=== PATIENT | male | born 2000 | race Caucasian/White ===

== ENCOUNTER 2022-09-19 08:33 | Emergency (ER) | payer OTHER ==
[~2022-09-19] VITALS: Ht 190.5 cm; Wt 88.8 kg
[2022-09-19 08:53] VITALS: BP 116/77
== END 2022-09-19 10:01 | disposition home or self-care (01) ==
LOC: ER 08:33
DX: J33.9 Nasal polyp, unspecified (principal)
CPT/HCPCS: 99281

== ENCOUNTER 2023-01-20 12:27 | Emergency (ER) | payer OTHER ==
[~2023-01-20] VITALS: Ht 190.5 cm; Wt 83.2 kg
[2023-01-20 13:12] VITALS: BP 133/89; PULSE 76; RESP 18; TEMP 100.2; O2SAT 98
[2023-01-20] MEDS ORDERED: PENI-88 PO (13:46)
[2023-01-20] MEDS ORDERED: LIDO20SO16 PO (13:46)
[2023-01-21] MEDS ORDERED: BENZ1LOZ74 PO (14:55)
[2023-01-21] MEDS ORDERED: IBUP-1986 PO (14:55)
== END 2023-01-20 13:59 | disposition home or self-care (01) ==
LOC: ER 12:28
DX: J02.0 Streptococcal pharyngitis (principal); Z79.2 Long term (current) use of antibiotics; Z79.899 Other long term (current) drug therapy
CPT/HCPCS: 99283

== ENCOUNTER 2023-01-21 13:57 | Emergency (ER) | payer OTHER ==
[~2023-01-21] VITALS: Ht 190.5 cm; Wt 74.4 kg
[~2023-01-21 13:57] MED LIST: LIDO20SO16 PO; PENI-88 PO
[2023-01-21 13:58] VITALS: BP 144/85; PULSE 91; TEMP 98; O2SAT 98
[2023-01-21] MEDS ORDERED: dexamethasone sod phosphate 10mg/ml inj PO STA (14:50)
[2023-01-21] MEDS ORDERED: ketorolac trometh inj. 60 MG/2 ML VIAL IM ONE (14:50)
[2023-01-21] MEDS ORDERED: diphenhydrAMINE 25 MG/10 ML UD oral solution PO ONE (14:50)
[2023-01-21] MEDS ORDERED: BENZ1LOZ74 PO (14:55)
[2023-01-21] MEDS ORDERED: IBUP-1986 PO (14:55)
[2023-01-21] MEDS ORDERED: ketorolac trometh. 30mg/ml inj. IM ONE (15:00)
[2023-01-21 15:11] VITALS: RESP 17
== END 2023-01-21 15:27 | disposition home or self-care (01) ==
LOC: ER 13:57
DX: J02.0 Streptococcal pharyngitis (principal); Z79.2 Long term (current) use of antibiotics; Z79.899 Other long term (current) drug therapy; R59.0 Localized enlarged lymph nodes
CPT/HCPCS: 96372; 99283; J1100; J1885; Q0163

== ENCOUNTER 2023-06-21 06:15 | Emergency (ER) | payer BC, OTHER ==
[~2023-06-21] VITALS: Ht 190.5 cm; Wt 90.2 kg
[~2023-06-21 06:15] MED LIST changes: +BENZ1LOZ74 PO; +IBUP-1986 PO; -PENI-88 PO
[2023-06-21 06:22] VITALS: BP 138/85; PULSE 89; RESP 16; TEMP 98.5; O2SAT 97
[2023-06-21 07:55] LABS: STREP A SCREEN NEGATIVE (Neg)
[2023-06-21] MEDS ORDERED: PENI500T2 PO (08:58)
[2023-06-21] MEDS ORDERED: penicillin V potassium 500mg tablet PO ONE (09:00)
== END 2023-06-21 09:33 | disposition home or self-care (01) ==
LOC: ER 06:16
DX: J02.9 Acute pharyngitis, unspecified (principal); Z20.822 Contact with and (suspected) exposure to COVID-19; Z79.899 Other long term (current) drug therapy; Z79.2 Long term (current) use of antibiotics; Z88.4 Allergy status to anesthetic agent
CPT/HCPCS: 36415; 87081; 87502; 87503; 87811; 87880; 99283